=== PATIENT | male | born 1995 | race Caucasian/White ===

== ENCOUNTER 2020-05-06 16:51 | Emergency (ER) | payer OTHER, SELFPAY ==
[2020-05-06 17:10] VITALS: BP 157/97; PULSE 89; RESP 18; TEMP 36.5; O2SAT 99
--- NOTE | 2020-05-06 17:35 | ED.GENADULT ---
HPI - General Adult General Chief complaint: Ear Stated complaint: right ear pain Time Seen by Provider: 05/06/20 17:35 Source: patient and RN notes reviewed Mode of arrival: ambulatory Limitations: no limitations History of Present Illness HPI narrative: 24-year-old male presents with complaints of RT otalgia for the past 6 days. Luis Alberto reports after a 15 hour flight RT became clogged and over the past 1-2 days popping and painful. No treatment. Denies trouble hearing. Denies tinnitus or ear drainage. Denies injury to the ear. Denies URI symptoms. No exacerbating factors. Denies swimming or getting water into ear. No nausea, vomiting, and abdominal pain. Tolerating po intake well. Denies dizziness, syncopal, lightheadedness, or seizure activity. No high fevers. Remains active. The patient reports he have not been diagnosed with COVID-19. The patient reports he is not waiting for the results of a COVID-19 lab test. The patient reports he do not have chills, weakness, or fatigue. The patient reports he do not have a new or worsening cough or shortness of breath. Denies chest pain. The patient reports he do not have any rhinorrhea, congestion, loss of taste or smell, sore throat, or diarrhea. Recently returned from [place] with the . Denies concerns for COVID-19 or exposures been home with limited outdoor exposure except for essential household needs, work, and return home. At this time, patient is not suspected of having COVID-19. Some parts of this dictation were generated by voice recognition software and may contain typographical and/or grammatical inaccuracies. Related Data Allergies Allergy/AdvReac Type Severity Reaction Status Date / Time No Known Allergies Allergy Verified 05/06/20 17:19 Review of Systems Review of Systems: Narrative: CONSTITUTIONAL: Denies fever, chills, sweats. EYES: Denies visual changes, redness, discharge. ENT: Complains of RT otalgia. Denies rhinorrhea, congestion, sore throat. CARDIOVASCULAR: Denies chest pain, palpitations, edema. RESPIRATORY: Denies dyspnea, wheezing, cough. GASTROINTESTINAL: Denies abdominal pain, nausea, vomiting, diarrhea. SKIN: Denies rash or itching. MUSCULOSKELETAL: Denies acute back pain, joint pain, or myalgia. NEUROLOGIC: Denies numbness or focal weakness. PSYCHIATRIC: Denies anxiety or depression. All systems reviewed & are unremarkable except as noted in HPI and below. [facility] Past Medical History Medical History (Updated 05/07/20 @ 00:00 by Ritchie River) Sleep apnea Surgical History Surgical History (Updated 05/06/20 @ 17:55 by MARINA Veras) History of adenoidectomy History of tonsillectomy Family History Family History (Updated 05/06/20 @ 17:56 by MARINA Veras) Father Alive and well Mother Diabetes mellitus pre- Social History Social History (Updated 05/06/20 @ 17:56 by MARINA Veras) Smoking status: Current every day smoker Tobacco type: smokeless tobacco Smokeless tobacco user: chewing tobacco Second hand tobacco smoke exposure: No Alcohol intake: current Substance use: never Living arrangements: with family Occupation/Education: occupation Gender identity (if verbalized by the patient): Male Sexual Orientation (if Verbalized by the Patient): Straight or Heterosexual Comments At time of signature, agree with nurse past medical, surgical, social, and family history. There is no relevant family history pertinent to the presenting complaint. Exam Narrative: Exam Narrative: GENERAL: This is a well-nourished, well-developed patient, in no apparent distress. Speaks in full sentences and ambulates with steady gait without dyspnea. HEAD: Normocephalic, atraumatic. EYES: PERRL. Sclera clear/white. Vision is grossly intact. EARS: External ears normal, auditory canals clear and without drainage, TMs normal without perforation. RT ear with mild tenderness
== END 2020-05-06 17:55 | disposition home or self-care (01) ==
PROVIDERS: Emergency Provider Nurse Practitioner Family; PCP Emergency Medicine
DX: J00 Acute nasopharyngitis [common cold] (principal); J01.90 Acute sinusitis, unspecified; F17.220 Nicotine dependence, chewing tobacco, uncomplicated; G47.30 Sleep apnea, unspecified
CPT/HCPCS: 99213; G0463

== ENCOUNTER → 2020-08-22 10:19 | Outpatient (CLI) | payer OTHER, SELFPAY ==
--- NOTE | ~2020-08-22 | CT_ITS ---
EXAMINATION: CT sinus wo con DATE: 08/22/2020 10:43 INDICATION: Acute recurrent pansinusitis TECHNIQUE: Computed tomography (CT) of the paranasal sinuses was performed without intravenous contra st. The dose-length product was 300.36 mGy-cm. Automated exposure control and iterative reconstructio n technique were employed. COMPARISON: CT dated 03/15/2015 FINDINGS: There is mucosal thickening of the left maxillary sinus. There are small bilateral rocco b ullosa. There is bilateral patent ostiomeatal unit. Leftward nasal septal deviation. Mastoids are pne umatized. IMPRESSION: 1. Mild left maxillary sinusitis. Reviewed, dictated and finalized at location B.
== END ==
PROVIDERS: PCP Student in an Organized Health Care Education/Training Program; Visit Provider Otolaryngology
DX: J01.41 Acute recurrent pansinusitis (principal); J32.0 Chronic maxillary sinusitis
CPT/HCPCS: 70486